=== PATIENT | female | born 1980 | race Caucasian/White ===

== ENCOUNTER 2018-09-11 20:37 | Emergency (ER) | payer OTHER ==
[2018-09-11] MEDS: IBUPROFEN 800 MG TAB PO (20:47)
[2018-09-11] MEDS: HYDROCODONE/APAP (5/325) TAB PO (21:53)
== END 2018-09-11 22:10 | disposition home or self-care (01) ==
LOC: E/R 20:37
DX: S62.640A Nondisplaced fracture of proximal phalanx of right index finger, initial encounter for closed fracture (principal); Y04.0XXA Assault by unarmed brawl or fight, initial encounter
CPT/HCPCS: 29130; 73140; 99283-25